=== PATIENT | male | born 1950 | race Caucasian/White ===

== ENCOUNTER 2018-08-06 13:28 | Observation (INO) | payer MEDICARE, BC ==
[2018-08-06 14:28] LABS: #Basophils 0.1 thou/uL (0.0-0.2); #Eosinphils 0.1 thou/uL (0.0-0.7); #Lymphocytes 1.8 thou/uL (1.20-3.40); #Monocytes 0.6 thou/uL (0.11-0.59); #Neutrophils 3.6 thou/uL (1.40-6.50); %Basophils 1.5 % (0.0-1.0); %Eosinophils 1.5 % (0.0-10.0); %Lymphocytes 29.5 % (21.0-51.0); %Monocytes 9.7 % (0.0-10.0); %Neutrophils 57.8 % (42.0-75.0); Hemoglobin 16.7 g/dL (14.0-18.0); Mean Corpuscular HGB CONC 34.5 g/dL (32.0-36.0); Mean Corpuscular Hemoglobin 34.2 pg (27.0-31.0); Mean Corpuscular Volume 99.1 fL (78.0-98.0); Mean Platelet Volume 6.1 fL (7.4-10.4); Platelet Count 274 thou/uL (130-400); Platelet Morphology Comment Appears Adequate; RBC Distribution Width 11.7 % (11.5-14.5); Red Blood Cell (RBC) Count 4.88 mill/uL (4.70-6.10); White Blood Cell (WBC) Count 6.2 thou/uL (4.8-10.8)
--- NOTE | 2018-08-06 14:32 | RAD ---
PA AND LATERAL VIEWS OF CHEST: Date: 08/06/18 HISTORY: Chest pain. FINDINGS: The heart size is normal. The aorta is tortuous. The lungs are well expanded without focal areas of c onsolidation, pneumothoraces, or pleural effusions. There are degenerative changes in the spine. IMPRESSION: No radiographic evidence of acute cardiopulmonary process. POS: C
[2018-08-06 14:38] LABS: ALT (SGPT) 26 U/L (8-55); AST (SGOT) 21 U/L (5-34); Albumin 4.4 g/dL (3.4-4.8); Alkaline Phosphatase 51 U/L (40-150); Anion Gap 14 mmol/L (10-20); BUN (Urea Nitrogen) 11 mg/dL (8.4-25.7); Bilirubin, Total 0.5 mg/dL (0.2-1.2); Calc. Creatinine Clearance 0 mL/min (70-130); Calcium 9.8 mg/dL (7.8-10.44); Carbon Dioxide 24 mmol/L (23-31); Chloride 105 mmol/L (98-107); Estimated GFR-MDRD Greater than 90; Globulin 3.3 g/dL (2.4-3.5); Glucose 95 mg/dL (80-115); Potassium 3.8 mmol/L (3.5-5.1); Protein, Total 7.7 g/dL (5.8-8.1); Sodium 139 mmol/L (136-145)
[2018-08-06 17:41] LABS: Troponin I Less than 0.010 ng/mL (< 0.028)
[2018-08-06] MEDS ORDERED: Acetaminophen 325 MG TAB PO PRN (18:08)
[2018-08-06 18:12] VITALS: BMI 27.6
[2018-08-06] MEDS ORDERED: HYDROcodone/Acetaminophen 5/325 mg Tablet PO PRN (19:41)
[2018-08-06] MEDS ORDERED: Enoxaparin Sodium 40 MG/0.4 ML SYRINGE SC SCH (19:45)
[2018-08-06 20:43] LABS: Troponin I Less than 0.010 ng/mL (< 0.028)
[2018-08-06] MEDS: Amlodipine 5 MG TAB PO SCH (21:12)
[2018-08-06] MEDS: Famotidine 20 MG TAB PO SCH (21:12)
[2018-08-06] MEDS ORDERED: Temazepam 15 MG CAP PO PRN (21:39)
[2018-08-06] MEDS ORDERED: guaiFENesin ER 600 MG TAB PO PRN (21:40)
--- NOTE | 2018-08-07 03:30 | HP ---
PRIMARY CARE PHYSICIAN: Yared Marmolejo MD. CHIEF COMPLAINT: Chest pain. HISTORY OF PRESENT ILLNESS: Mr. Alvarez is a 68-year-old male who reported to the emergency room today for left-sided chest pain that had started 1 hour prior to arrival. Reports that he was tending to his animals, felt ache, fluttering sensation in left side of his chest, radiated to his left arm. Reports taking his blood pressure at home, which he reports was a high reading. Took his blood pressure medications that he usually takes at night. By the time he showed up to the emergency room, reports that pain was slightly better. Denied diaphoresis. Reports that he has been nauseous for the last 2 or 3 days. Reports pain is left-side of the chest, currently kind of achy, and radiates up to his left shoulder, left arm. Reports that he was chopping wood yesterday, denied any shortness of breath or chest pain while doing that. does report that he did have to stop several times while he was doing that which was not necessarily normal for him. Reports that he is usually very active and does have a history of hypertension. He did have a cardiac cath in 2012, which showed left main with some, calcium but no stenosis, LAD was no obstructive stenosis, diagonal branch 60% to 70% lesion. Circumflex, no significant stenosis. Right coronary; 30% proximal, 40% to 50% mid lesion. None of it appeared to be flow limiting. Ejection fraction at that time was 70%. He also had an echocardiogram in January 2013 which showed an ejection fraction of 55% to 60%, mild concentric left ventricular hypertrophy, [id number] tricuspid insufficiency. The patient currently sees Dr. Estrada for Cardiology. reports that Dr. Estrada has been talking about getting an echocardiogram. Two troponins on this admission have been undetectable. The patient was admitted to the observation unit for further management. PAST MEDICAL HISTORY: Hypertension. PAST SURGICAL HISTORY: None. PSYCHIATRIC HISTORY: None. SOCIAL HISTORY: The patient reports that he drinks alcohol less than 5 drinks per day. Denies drug use. Did smoke a very long time ago. FAMILY HISTORY: Reports mother has a history of cardiac disease and also has had a stroke. CURRENT MEDICATIONS: Include; 1. Norvasc 5 mg p.o. b.i.d. 2. Metoprolol 25 mg p.o. daily. ALLERGIES: NONE. REVIEW OF SYSTEMS: CONSTITUTIONAL: Denies fever, denies chills. EYES: Denies any eye pain, vision changes. ENT: Denies sore throat or rhinorrhea. CARDIOVASCULAR: Does report some chest pains and palpitations earlier today. Reports pain radiates up to his left shoulder and arm. RESPIRATORY: Denies any cough. Denies any shortness of breath. Reports that he has noticed some dyspnea on exertion over the last couple of months. GI: Denies abdominal pain. Reports some nausea over the last 2 to 3 days. Denies vomiting. Denies diarrhea. : Denies dysuria or hematuria. MUSCULOSKELETAL: Does report some back pain which reports is chronic. Reports aches, myalgias. SKIN: Denies rash. NEUROLOGIC: Denies headache. Denies numbness, tingling. PHYSICAL EXAMINATION: VITAL SIGNS: Blood pressure 144/100, pulse is 62, respirations 16, pO2 sats are 94% on room air, and temperature is 98.2. CONSTITUTIONAL: The patient appears nontoxic, is alert and oriented to person, place, and time. HEAD: Atraumatic and normocephalic. EYES: Pupils equally, round, and reactive to light. Extraocular muscles are intact. ENT: Mouth exam is normal. Mucous membranes are moist. RESPIRATORY/CHEST: Chest movement is symmetrical. Breath sounds are clear. CARDIOVASCULAR: Regular rate and rhythm. Heart sounds are normal. +2 pulses radial, pedal bilaterally. ABDOMEN: Nontender. No distention. No peritoneal signs. Bowel sounds are heard. BACK: Normal inspection. No CVA tenderness. EXTREMITIES: Upper extremity, normal range of motion. Motor strength is normal. Sensation is intact. Radial pulses equal bilaterally. Lower extremities, inspection is normal. Range of motion is normal. Motor strength is normal. Sensation intact. No edema is noted. Pedal pulses equal bilaterally. NEUROLOGIC: The patient is oriented to person, place, and time. Speech is normal. SKIN: Dry, normal in color. IMAGING STUDIES: EKG shows normal sinus rhythm at 77 beats per minute. No ST elevation or depression. Normal axis. PERTINENT LABORATORY DATA: White blood cell count is 6.2, hemoglobin 16.7, hematocrit 48.4, and platelet count is 274. Sodium 139, potassium 3.8, chloride 105, carbon dioxide 24, gap is 14, BUN is 11, creatinine is 0.8. Estimated GFR is greater than 90, glucose is 95, calcium is 9.8. Liver and enzymes are unremarkable. Troponin x2 are undetectable. ASSESSMENT AND PLAN: 1. Chest pain. We will order a stress test, echocardiogram. We will ask Dr. Estrada to consult. We will also order another troponin. 2. Hypertension. We will trend. We will restart home medications. 3. We will start gastrointestinal and deep venous thrombosis prophylaxis. 4. Case will be discussed with Dr. De Los Santos for any further orders. 5. Hospital course will be dependent on clinical findings. Job ID: [id number]
[2018-08-07 05:23] LABS: #Basophils 0.1 thou/uL (0.0-0.2); #Eosinphils 0.2 thou/uL (0.0-0.7); #Lymphocytes 1.9 thou/uL (1.20-3.40); #Monocytes 0.8 thou/uL (0.11-0.59); #Neutrophils 2.3 thou/uL (1.40-6.50); %Basophils 1.4 % (0.0-1.0); %Eosinophils 3.8 % (0.0-10.0); %Lymphocytes 35.6 % (21.0-51.0); %Monocytes 14.5 % (0.0-10.0); %Neutrophils 44.6 % (42.0-75.0); Hemoglobin 14.7 g/dL (14.0-18.0); Mean Corpuscular Hemoglobin 34.4 pg (27.0-31.0); Mean Platelet Volume 6.4 fL (7.4-10.4); Platelet Count 266 thou/uL (130-400); RBC Distribution Width 11.8 % (11.5-14.5); Red Blood Cell (RBC) Count 4.26 mill/uL (4.70-6.10); White Blood Cell (WBC) Count 5.2 thou/uL (4.8-10.8)
[2018-08-07 05:27] LABS: ALT (SGPT) 21 U/L (8-55); AST (SGOT) 16 U/L (5-34); Albumin 3.7 g/dL (3.4-4.8); Alkaline Phosphatase 48 U/L (40-150); Anion Gap 13 mmol/L (10-20); BUN (Urea Nitrogen) 14 mg/dL (8.4-25.7); Bilirubin, Total 0.4 mg/dL (0.2-1.2); Calc. Creatinine Clearance 104 mL/min (70-130); Carbon Dioxide 25 mmol/L (23-31); Cardiac Risk 4.4 (Less than 4.5); Chloride 105 mmol/L (98-107); Cholesterol 244 mg/dl (< 200 Desired); Estimated GFR-MDRD 88; Globulin 2.7 g/dL (2.4-3.5); Glucose 91 mg/dL (80-115); HDL Cholesterol 55 mg/dL (>60 Neg Risk); LDL Cholesterol, Calculated 167 mg/dL; Potassium 3.7 mmol/L (3.5-5.1); Protein, Total 6.4 g/dL (5.8-8.1); Sodium 139 mmol/L (136-145); Triglycerides 109 mg/dL (Less than 150)
[2018-08-07] MEDS: Famotidine 20 MG TAB PO SCH (12:07)
[2018-08-07] MEDS: Amlodipine 5 MG TAB PO SCH (12:07)
[2018-08-07 16:48] VITALS: BP 132/81; TEMP 97.4
--- NOTE | 2018-08-07 16:56 | NM ---
RADIONUCLIDE STRESS AND REST MYOCARDIAL PERFUSION SCAN WITH CT ATTENUATION CORRECTION AND SPECT IMAGI NG LEFT VENTRICULAR WALL MOTION EVALUATION AND EJECTION FRACTION 08/07/18 HISTORY: Chest pain. FINDINGS: Bairon protocol. Total test time 6:12. There is homogeneous uptake of radiotracer throughout the left ventricular myocardium. No focal perfusion defect or reversibility. QGS analysis of gated SPECT image s shows no focal wall motion abnormalities. TID is 0.8. LHR is 34%. Left ventricular ejection fraction is calculated at 77%. IMPRESSION: Normal myocardial perfusion scan. Normal LVEF. POS: CONRAD
--- NOTE | 2018-08-07 19:53 | CON ---
DATE OF CONSULTATION: 08/07/2018 REASON FOR CONSULTATION: Chest pain. HISTORY OF PRESENT ILLNESS: Mr. Alvarez is a pleasant 68-year-old white gentleman, who comes to the hospital for chest pain. He was at home, had this pain coming from his back. He has always thought it was musculoskeletal pain, but this time he checked his blood pressure and it was 180/100, so family got concerned, decided to come in for evaluation. He was initially ruled out with an unremarkable EKG and negative enzymes. Troponins were negative x3. He underwent stress testing, which was normal. He was seen in the office about a year ago and he had an echocardiogram, at that time it showed normal EF and valvular regurgitation. He was also scheduled to have a stress test, but is never happen because of scheduling issues. He otherwise is doing much better now. His blood pressure is back to normal and his pain is gone. PAST MEDICAL HISTORY: Hypertension. PAST SURGICAL HISTORY: None. SOCIAL HISTORY: Continues to drink about 2 to 4 drinks a day. Former tobacco user. No drug use. FAMILY HISTORY: Early coronary artery disease in mother. OUTPATIENT MEDICATIONS: Include: 1. Norvasc 5 mg b.i.d. 2. Metoprolol 25 mg a day. ALLERGIES: NO KNOWN DRUG ALLERGIES. REVIEW OF SYSTEMS: A 12-point review of systems was done and was found to be negative unless stated in history of present illness. PHYSICAL EXAMINATION: VITAL SIGNS: Temperature 97.4, pulse 67, respiratory rate 20, saturation 96% on room air, blood pressure currently 132/81, 110s to 120s. GENERAL: Awake, alert, and oriented x3. No distress. HEENT: Normocephalic and atraumatic. NECK: Supple. LUNGS: Clear. CARDIOVASCULAR: S1 and S2. No S3 or S4. No murmurs. ABDOMEN: Soft with positive bowel sounds. EXTREMITIES: No edema. SKIN: Warm and dry. LABORATORY DATA: Laboratory work was reviewed. CBC is unremarkable. CMP is unremarkable. GFR is greater than 90. Troponin is undetectable x3. Triglycerides of 106, total cholesterol of 244, LDL of 167, and HDL of 55. TSH was normal. Echocardiogram was reviewed. Nuclear stress was reviewed, EF at 77% with no reversible findings suggestive of ischemia. ASSESSMENT: 1. Chest pain. 2. Hypertension. PLAN: 1. Likely chest pain may be related to hypertension versus just musculoskeletal pain. At this time, we will give a prescription for p.r.n. hydralazine to be used only when his blood pressure is above 170 or diastolic above 100. 2. We will have him follow up in the office in 1 month. If he continues to have chest pains, we may have to further risk stratify with a heart catheterization, not at this time. 3. He may be discharged home later today from the cardiac perspective. Thank you for letting me to participate in the care of your patient. Job ID: [id number]
--- NOTE | 2018-08-11 21:02 | EKG ---
Test Reason : Blood Pressure : / mmHG Vent. Rate : 077 BPM Atrial Rate : 077 BPM P-R Int : 134 ms QRS Dur : 096 ms QT Int : 368 ms P-R-T Axes : 036 -09 033 degrees QTc Int : 416 ms Normal sinus rhythm Normal ECG Confirmed by VELVET RODRIGUEZ DO ([id number]), legal editor ALEJANDRA CASTANO ([id number] on 08/11/2018 9:02:45 PM Referred By: Confirmed By:VELVET RODRIGUEZ DO
== END 2018-08-07 18:33 | disposition home or self-care (01) ==
LOC: SCSER 13:28 → ERHOLD 15:14 → SCSEROBS 15:32 → 2SW 18:03
PROVIDERS: ADMIT Family Medicine; ATTEND Family Medicine
DX: R07.9 Chest pain, unspecified (principal); I10 Essential (primary) hypertension; Z79.899 Other long term (current) drug therapy; Z87.891 Personal history of nicotine dependence
CPT/HCPCS: 36415; 71046; 78452; 80053; 80061; 84443; 84484; 85025; 93005; 93017; 93306; 96372; A9500; G0378; J1650

== ENCOUNTER 2019-05-15 13:58 | Outpatient (CLI) | payer MEDICARE, BC ==
--- NOTE | 2019-05-15 14:32 | RAD ---
RIGHT KNEE FOUR VIEWS: HISTORY: Right knee pain. FINDINGS: No fracture, dislocation or bony destruction is seen. Mild degenerative changes are present. POS: TPC
== END 2019-05-15 13:59 | disposition home or self-care (01) ==
LOC: SCSRAD 13:58
PROVIDERS: ATTEND Family Medicine
DX: M25.561 Pain in right knee (principal); M17.11 Unilateral primary osteoarthritis, right knee

== ENCOUNTER 2019-07-15 15:36 | Outpatient (CLI) | payer MEDICARE, BC ==
--- NOTE | 2019-07-15 16:41 | RAD ---
EXAM: 3 views of the thoracic spine HISTORY: Thoracic spine pain COMPARISON: Cervical spine radiograph 07/15/2019 FINDINGS: 3 views of the thoracic spine shows normal height and alignment of the vertebral bodies and intervertebral discs without fracture or subluxation. Small osteophytes are seen throughout the thoracic spine. IMPRESSION: Mild degenerative changes of the thoracic spine.
--- NOTE | 2019-07-15 16:41 | RAD ---
Exam: 2 views lumbar spine HISTORY: Low back pain. Numbness and tingling in extremities. COMPARISON: none FINDINGS: 5 lumbar type vertebra. Lumbar spine vertebral body height is maintained. No fracture. Mild loss of disc space height and osteophyte formation the distal thoracic spine, thoracolumbar junction and upper lumbar spine. Spondylolisthesis: 4.3 mm of retrolisthesis of L2 upon L3. Minimal atherosclerosis of the visualized aorta Visualized bony pelvis and sacrum are intact IMPRESSION: Mild degenerative changes lumbar spine as above. Retrolisthesis as detailed above.
--- NOTE | 2019-07-15 16:52 | RAD ---
EXAM: CERVICAL SPINE THREE VIEWS: History: Upper back pain. FINDINGS: C7 and T1 are partially obscured on the lateral view. No prevertebral soft tissue swelling. Extensive multilevel disc osteophytosis particularly at C5-6 and C6-7. The tip of the odontoid is partially ob scured on the open mouth view. IMPRESSION: Extensive disc osteophytosis, particularly at C5-6 and C6-7. Evidence for spondylosis. No acute fract ure or dislocation involving the visualized cervical spine. POS: OFF
== END 2019-07-15 15:37 | disposition home or self-care (01) ==
LOC: SCSRAD 15:36
PROVIDERS: ATTEND Nurse Practitioner Family
DX: M54.5 Low back pain (principal); M54.6 Pain in thoracic spine; M47.812 Spondylosis without myelopathy or radiculopathy, cervical region; M25.78 Osteophyte, vertebrae; M47.814 Spondylosis without myelopathy or radiculopathy, thoracic region; M47.816 Spondylosis without myelopathy or radiculopathy, lumbar region; M43.16 Spondylolisthesis, lumbar region
CPT/HCPCS: 72040; 72072; 72100